=== PATIENT | female | born 1950 | race Caucasian/White ===

== ENCOUNTER 2021-02-06 07:14 | Outpatient (CLI) | payer MEDICARE, SELFPAY ==
--- NOTE | ~2021-02-06 | MR_ITS ---
EXAMINATION: MR cervical spine wo con DATE: 02/06/2021 08:39 INDICATION: Chronic neck pain. TECHNIQUE: Magnetic resonance imaging (MRI) of the cervical spine was performed without intravenous c ontrast. Sequences included sagittal T2-weighted FSE, sagittal T2-weighted FS FSE, sagittal T1-weight ed FSE, axial MERGE, and axial T2-weighted FSE. COMPARISON: None FINDINGS: There is 14 degrees levoscoliosis of upper thoracic spine. Vertebral body heights are brenda l. There is mildly decreased disc height at C5-C6. The spinal cord signal intensity is normal. The fo llowing disc levels are specifically discussed: C2-C3: The disc does not extend beyond the endplate margin. There is no uncovertebral joint osteoarth ritis. There is severe left facet joint osteoarthritis. There is no neural foraminal stenosis. There is no central canal stenosis. C3-C4: The disc does not extend beyond the endplate margin. There is mild left uncovertebral joint os teoarthritis. There is mild right and severe left facet joint osteoarthritis. There is mild left neur al foraminal stenosis. There is no central canal stenosis. C4-C5: There is a left foraminal protrusion. There is mild left uncovertebral joint osteoarthritis. T here is moderate right and severe left facet joint osteoarthritis. There is mild left neural foramina l stenosis. There is no central canal stenosis. C5-C6: The disc is bulging. There is moderate right and severe left uncovertebral joint osteoarthriti s. There is mild right and severe left facet joint osteoarthritis. There is mild left neural foramina l stenosis. There is mild central canal stenosis. C6-C7: There is a central protrusion. There is no uncovertebral joint osteoarthritis. There is severe bilateral facet joint osteoarthritis. There is mild bilateral neural foraminal stenosis. There is mi ld central canal stenosis. C7-T1: The disc does not extend beyond the endplate margin. There is no uncovertebral joint osteoarth ritis. There is severe right and moderate left facet joint osteoarthritis. There is mild bilateral ne ural foraminal stenosis. There is no central canal stenosis. IMPRESSION: 1. Mild cervical spondylosis. 2. Upper thoracic levoscoliosis. Reviewed, dictated and finalized at location A.
--- NOTE | ~2021-02-06 | CT_ITS ---
EXAMINATION: CT brain wo con EXAM DATE: 02/06/2021 08:52 INDICATION: Ataxia, lightheadedness and dizziness. Some visual disturbance. Tunnel vision. TECHNIQUE: Spiral CT of the head was performed without contrast. Axial, coronal and sagittal images were reviewed. The dose-length product (DLP) for this examination was 605.33 mGy-cm. The exposure w as tailored according to patient size, and iterative reconstruction (ASIR) was used as additional dos e reduction technique. There is no prior study for comparison. FINDINGS: There is no acute intraparenchymal hemorrhage. No evidence of intraparenchymal brain mass lesion. No evidence of acute infarction. Please note that initial head CT has limited sensitivity f or small or acute infarctions. There is mild periventricular and subcortical hypodensity, nonspecific but probably related to small vessel ischemic disease. There is mild prominence of the sulci and v entricles related to cerebral atrophy. There is intracranial carotid arteriosclerosis. There are n o extra-axial collections. There is no mass effect or midline shift. Patient has had bilateral ocul ar lens surgery. Soft tissue is unremarkable. The visualized sinuses and mastoid air cells are well aerated. IMPRESSION: 1. No acute intracranial findings. 2. Mild chronic age related findings. Reviewed, dictated and finalized at location A.
== END 2021-02-06 07:15 | disposition home or self-care (01) ==
LOC: ANHIMG 07:36
PROVIDERS: PCP Internal Medicine; Visit Provider Internal Medicine
DX: R27.0 Ataxia, unspecified (principal); M47.892 Other spondylosis, cervical region
CPT/HCPCS: 70450; 72141

== ENCOUNTER 2021-02-14 07:17 | Outpatient (CLI) | payer MEDICARE, SELFPAY ==
--- NOTE | 2021-02-14 | EST_ITS ---
Patient Info Name: Renetta Garcia Age: 70 years : 1950 Gender: Female Ht: 64 in Wt: 265 lbs BSA: 2.40 m2 Heart Rhythm: Sinus Rhythm Exam Date: 02/14/2021 11:03 AM Exam Location: [facility] Stress Patient Status: Outpatient Admit Date: 02/14/2021 Staff Ordering Physician: Kemal, Devin Isaac MD Attending Provider: Kemal, Devin Isaac MD Exercise Technologist: Jacqueline Glez RDCS Exercise Physician: Thien Dunn MD Exam Type: CA stress bree w NM Study Info Indications R06.09 - Other forms of dyspnea A regadenoson stress test was performed. Summary 1. Normal ECG response to Lexiscan. 2. Occasional stress-induced PVCs. 3. Brief stress-induced chest discomfort resolved spontaneously. 4. Please correlate with nuclear medicine images, reported separately. Protocol: Lexiscan Stress ECG Details Stage: REST Duration (min): 4 min : 23 sec HR (bpm): 62 SBP (mmHg): 144 DBP (mmHg): 79 Stage: REST Duration (min): 7 min : 51 sec HR (bpm): 63 SBP (mmHg): 144 DBP (mmHg): 79 Stage: STAGE 1 Duration (min): 1 min : 0 sec HR (bpm): 83 SBP (mmHg): 144 DBP (mmHg): 79 Stage: RECOVERY Duration (min): 1 min : 0 sec HR (bpm): 84 SBP (mmHg): 165 DBP (mmHg): 60 Stage: RECOVERY Duration (min): 2 min : 0 sec HR (bpm): 81 SBP (mmHg): 163 DBP (mmHg): 60 Stage: RECOVERY Duration (min): 3 min : 0 sec HR (bpm): 78 SBP (mmHg): 158 DBP (mmHg): 65 Stage: RECOVERY Duration (min): 4 min : 0 sec HR (bpm): 78 SBP (mmHg): 158 DBP (mmHg): 65 Stage: RECOVERY Duration (min): 4 min : 56 sec HR (bpm): 75 SBP (mmHg): 160 DBP (mmHg): 68 Rest HR: 63 bpm Peak HR: 87 bpm Rest Sys BP: 144 mmHg Peak Sys BP: 165 mmHg Max Pred HR: 149 bpm % Max Pred HR: 58 % Target HR: 127 bpm Max RPP: 14,355 bpm*mmHg Termination Reason: Completed protocol Cardiac Symptoms: Chest discomfort, Dyspnea Total Time: 1 min : 0 sec Rest Dillon BP: 79 mmHg Peak Dillon BP: 60 mmHg Total Dose: 0.4 mg Resting ECG Normal sinus rhythm - normal ECG. Stress ECG Normal ECG response to Lexiscan. Arrhythmias Occasional stress-induced PVCs. Report Signatures
--- NOTE | 2021-02-14 | ECHO_ITS ---
Patient Info Name: Renetta Garcia Age: 70 years : 1950 Gender: Female Ht: 64 in Wt: 265 lbs BSA: 2.40 m2 HR: 73 bpm BP: 148 / 86 mmHg Technical Quality: Fair Exam Date: 02/14/2021 8:15 AM Exam Location: [facility] Pulmonary Patient Status: Outpatient Admit Date: 02/14/2021 Staff Ordering Physician: Maulik*Devin MD Stone Sandblaster: GEORGINA GOLDSTEIN Attending Provider: Devin Gurrola MD Referring Physician: Kemal WETZEL; Exam Type: CA echo doppler color flow Study Info Indications R06.00 - Dyspnea, unspecified Complete two-dimensional, color flow and Doppler transthoracic echocardiogram is performed. Summary 1. Complete two-dimensional, color flow and Doppler transthoracic echocardiogram is performed. 2. Left ventricular systolic function is normal, estimated at 65-70%. 3. There is moderately increased left ventricular wall thickness. 4. The left ventricular diastolic function is grade I diastolic dysfunction. 5. Right ventricular chamber dimension is moderately enlarged. 6. Right ventricular systolic function is normal. 7. There is mild LV intracavitary obstruction with peak gradient 16 mmHg. Left Ventricle Left ventricular chamber dimension is normal. Left ventricular systolic function is normal, estimated at 65-70%. There is moderately increased left ventricular wall thickness. Left ventricular septal wall motion is normal. The left ventricular diastolic function is grade I diastolic dysfunction. There is mild LV intracavitary obstruction with peak gradient 16 mmHg. Right Ventricle Right ventricular chamber dimension is moderately enlarged. Right ventricular systolic function is normal. Left Atria Left atrial chamber dimension is mildly enlarged. Right Atria Right atrial chamber dimension is normal. Atrial Septum Intact interatrial septum visualized by color flow imaging. Aortic Valve The aortic valve is trileaflet. There is no aortic valve sclerosis. There is no aortic valve stenosis. There is no aortic valve regurgitation. Pulmonic Valve The pulmonic valve is normal. There is no pulmonic valve stenosis. There is no pulmonic regurgitation. Mitral Valve The mitral valve has normal leaflets. There is no mitral valve stenosis. There is no mitral valve regurgitation. There is mild mitral valve calcification. Tricuspid Valve The tricuspid valve leaflets are normal. There is no significant tricuspid valve stenosis. There is no tricuspid valve regurgitation. Pericardium/Pleural The pericardium appears normal. There is no pericardial effusion. Inferior Vena Cava Normal inferior vena cava with <50% collapse upon inspiration consistent with elevated right atrial pressure, 10 mmHg. Aorta The aortic root size at the sinus of Valsalva is normal. The prox ascending aorta size is normal. Left Ventricular Outflow Tract Name Value Normal LVOT 2D LVOT Diameter 1.9 cm LVOT Doppler LVOT Peak Gradient 4 mmHg LVOT Mean Gradient 2 mmHg LVOT VTI 21 cm
--- NOTE | ~2021-02-14 | NM_ITS ---
EXAMINATION: NM bree stress w perfusion DATE: 02/14/2021 13:58 INDICATION: Dyspnea on exertion TECHNIQUE: Rest images were obtained following intravenous administration of 9.1 mCi Tc99m tetrofosmi n (Myoview). The patient was infused intravenously with Lexiscan (Regadenoson). Then, 28.8 mCi Tc99m tetrofosmin (Myoview) was administered intravenously, and stress images were obtained. Data was recon structed into short axis and horizontal and vertical long axis SPECT images. Gated SPECT images were also obtained. COMPARISON: None. FINDINGS: There is no definite reversible or fixed perfusion abnormality to suggest ischemia or infar ction. There is normal left ventricular chamber size, wall motion and ejection fraction. Left ventr icular ejection fraction measures >70%. IMPRESSION: 1. Normal myocardial perfusion at rest and during stress. 2. Left ventricular ejection fraction measuring >70%. Reviewed, dictated and finalized at location A.
== END 2021-02-14 07:18 | disposition home or self-care (01) ==
LOC: ANHCARD 07:19
PROVIDERS: PCP Internal Medicine; Visit Provider Internal Medicine
DX: R06.09 Other forms of dyspnea (principal); I51.7 Cardiomegaly
CPT/HCPCS: 78452; 93017; 93306; A9502; J2785

== ENCOUNTER 2021-07-29 08:12 | Outpatient (CLI) | payer MEDICARE, SELFPAY ==
--- NOTE | ~2021-07-29 | CT_ITS ---
EXAMINATION: CT soft tissue neck w con DATE: 07/29/2021 08:46 INDICATION: Localized swelling, mass and lump, neck. Dysphagia. Left neck swelling. TECHNIQUE: Computed tomography (CT) of the neck was performed with 75 mL Omnipaque-350 intravenous co ntrast. Automated exposure control and iterative reconstruction technique were employed. The dose-paras gth product was 517.10 mGy-cm. COMPARISON: None FINDINGS: There are likely changes of ocular lens replacement surgeries. The thyroid is normal. There are no pathologically enlarged lymph nodes. The major salivary glands are normal. There is mild muco peter thickening in the paranasal sinuses. There is mild cervical spondylosis. IMPRESSION: 1. No abnormal mass or lymphadenopathy. Reviewed, dictated and finalized at location A. ING CAN WORKER
[2021-07-29 08:36] LABS: Estimated Glomerular Filt Rate > 60
== END 2021-07-29 08:13 | disposition home or self-care (01) ==
LOC: ANHIMG 08:15
PROVIDERS: PCP Internal Medicine; Visit Provider Otolaryngology
DX: R22.1 Localized swelling, mass and lump, neck (principal)
CPT/HCPCS: 70491; Q9967

== ENCOUNTER 2023-05-05 12:40 | Outpatient (CLI) | payer MEDICARE, SELFPAY ==
--- NOTE | 2023-05-09 16:23 | WPDPFTINT ---
PFT Procedure Performed PFT Procedure Performed Plethysmography (Lung Vol) Diffusing Cap (DLCO) Flow Vol Loop Spirometry w/o Bronchodil PFT Interpretation DOS: 05/05/2023 REQUESTING: Dr. Devin Perez REASON FOR TESTING: shortness of breath PULMONARY FUNCTION TESTS Results are reliable and reproducible. Spirometry: FEV1 is 1.58 L, 72% predicted, mildly decreased. FVC is 2.37 L, 83% predicted, normal. The FEV1/FVC ratio is 67%, within the normal range. No bronchodilator was administered. Lung volumes: The total lung capacity is 5.22 L, 101% predicted, normal. Residual volume is 2.85 L, 124% predicted, within the normal range. RV/TLC is 54%, upper limit of normal. Airway resistance is 4.81 cmH20/L/sec, 240% predicted, elevated. Diffusion: DLCO is 20.2, 98% predicted, normal. DLCO/VA is 4.99, 119%, normal. Flow volume loop: The expiratory limb has a mild coving of the expiratory limb. There were 3 expiratory limbs, and I evaluated the best of the 3. IMPRESSION: This pulmonary function study without bronchodilator shows a mild decrease in FEV1 without airflow obstruction, normal lung volumes and normal diffusion. There are no prior studies for comparison. Jenise Knowles MD
== END 2023-05-05 12:41 | disposition home or self-care (01) ==
LOC: ANHPFT 12:41
PROVIDERS: PCP Internal Medicine; Visit Provider Internal Medicine
DX: R06.00 Dyspnea, unspecified (principal); R94.2 Abnormal results of pulmonary function studies
CPT/HCPCS: 94375; 94726; 94729

== ENCOUNTER 2025-03-31 13:31 | Outpatient (CLI) | payer MEDICARE, SELFPAY ==
--- OUTSIDE RECORDS SUMMARY | 2014-10-05 05:30 | XMS_ITS | Continuity of Care Document ---
Author Organization [facility] Address [address] [facility] [address] [place] [id number] Phone Care Team Providers Care Surgical Oncologist Name Role Phone Denny Guerrero MD, MD Unavailable Unavailab le Allergies, Adverse Reactions, Alerts Substance Reaction Status Criticality azithromycin Active No Information POTASSIUM CLAVULANATE Active No Inf ormation AMOXICILLIN TRIHYDRATE Active No In formation Medications Medication Instructions Dosage Effective Dates (start - stop) Status Comments Emma-D 12 Hour 60 mg-120 mg tablet,extended release - Active Celebrex 200 mg capsule - Active lisinopril 10 mg tablet - Active Nexium 40 mg capsule,delayed release - Active Durezol 0.05 % eye drops instill 1 drop by ophthalmic route 2 times every day into operated eye for 2 weeks - No Longer Active Procedures Procedure Date Office/outpatient Visit, Est Post-op Follow-up Visit No Charge Refraction Post-op Follow-up Visit Remove Cataract, Insert Lens Post-op Follow-up Visit Post-op Follow-up Visit Remove Cataract, Insert Lens Office/outpatient Visit, New No Charge Refraction IOLMaster IOLMaster Advance Directives Directive Yes / No Effective Date File Name No Information Encounters Encounter Description Practice Location Reason(s) For Visit Diagnoses Date Provider Providers Copied on Encounter Office/outpat ient Visit, Est [facility], [address], [place], [place], [id number], [place] tel:[phone] SEC [place] Professional 6 MO FU (chief complaint) Artificial lens present Apr-2 -201 5 Cesar Baldwin. [address], [address], [place], [place], [facility], [place]. tel:[phone] Referring Provider: Denny Mercedes, [address], [place], [place], [facility]. tel:[phone] [facility], [address], [place], [place], [id number], [place] tel:[phone] SEC [place] Professional F/u exam, postop (chief complaint) Post op follow up Oct-2 - 4 Farida Mix. [address] [facility], [facility] [[email or web address] [place], [id number], [place]. tel:[phone] Referring Provider: Barak Browne OD, [facility] [address] [place], [address]. tel:[phone] [facility], [address], [place], [place], [id number], [place] tel:[phone] SEC [place] Professional F/u exam, postop (chief complaint) Post op follow up Oct-0 - 4 Cesar Bladwin. [address], [address], [place], [place], [facility], [place]. tel:[phone] Referring Provider: Barak Browne OD, [facility] [address] [place], [address]. tel:[phone] [facility], [address], [place], [place], [id number], [place] tel:[phone] [facility] No Information Oct-0 6- 4 Cesar Baldwin. [address], [address], [place], [place], [facility], [place]. tel:[phone] Referring Provider: Barak Browne OD, [facility] [address] [place], [address]. tel:[phone] [facility], [address], [place], [place], [id number], [place] tel:[phone] SEC [facility] Professional F/u exam, postop (chief complaint) Post op follow up Oct-0 1-201 4 Wankum Dominguez. [address] [facility], [place], [place], [id number], [place]. tel:[phone] Referring Provider: Denny Guerrero MD P, [address], [place], [address]. tel:[phone] [facility], [address], [place], [place], [id number], [place] tel:[phone] [facility] Professional F/u exam, postop (chief complaint) Post op follow up Sep-2 3-201 4 Wankum Dominguez. [address] [facility], [address], [place], [place], [address], [place]. tel:[phone] Referring Provider: Barak Browne OD, [facility] [address] [place], [address]. tel:[phone] [facility], [address], [place], [place], [id number], [place] tel:[phone] [facility] No Information Sep-2 2-201 4 Cesar Baldwin. [address], [place], [address], [place]. tel:[phone] Referring Provider: Barak Browne OD, [facility] [address] [place], [address]. tel:[phone] [facility], [address], [place], [place], [id number], [place] tel:[phone] SEC Jocelyn Matos No Information 4 Kadeem Beltran. [address], [address], [place], [place], [id number], [place]. tel:[phone] Office/outpat ient Visit, [facility], [address], [place], [place], [id number], [place] tel:[phone] SEC Khadar CARRI[place] Professional Blurry vision (chief complaint) Cortical senile cataract Feb- 4 Cesar Baldwin. [address], [address], [place], [address], [place]. tel:[phone] Referring Provider: Barak Browne OD, [facility] [address] [facility], [place], [address]. tel:[phone] [facility], [address], [place], [place], [id number], [place] tel:[phone] SEC Khaadr CARRILLO Professional No Information 4 Farida Mix. [address] [facility], [address], [place], [place], [id number], [place]. tel:[phone] Family History Family Member Type Diagnosis Age At Onset No Information Payers Payer name Insurance type Covered democrat ID Authoriza tivern(s) [place] FEP BL [id number] Social History Type Description Quantity Date Captured Comments Alcohol Use Details Unknown Caffeine Use Details Unknown Tobacco Use Status No Information Smoking Status No Information Sex Female Chief Complaint And Reason For Visit From encounter dated '10/05/2014 10:30'. 6 MO FU (chief complaint). Description: The 63 year old female presents for 6 MO FU. Patient reports she is only here because our office called to make her a 6 month appointment. Patient reports OU vision is good. Patient has not seen Dr. Browne, but got new glasses in his office. Patient states the only thing that bothers her is the floater OS that has been present since her Cataract Surgery. Patient Hx IOL OU. Reason For Referral Reason For Referral No Information History Of Present Illness Encounter Date Complaint History Of Prese nt Illness 6 MO FU The 63 year old female presents for 6 MO FU. Patient reports she is only here because our office called to make her a 6 month appointment. Patient reports OU vision is good. Patient has not seen Dr. Browne, but got new glasses in his office. Patient states the only thing that bothers her is the floater OS that has been present since her Cataract Surgery. Patient Hx IOL OU. F/u exam, postop The 63 year old female presents for a 2 week post op Phaco c IOL OD (2nd eye). Pt states she has a shadow nasally OD. Pt states she only notices shadow when looking straight ahead. Pt has no c/o of pain or discomfort. Pt using Pred. F/u exam, postop Patient present s for a 1 day post op CE OD. Patient to begin Poly and Pred qid OD and has refills from OS. Patient denies any pain or discomfort. F/u exam, postop Patient present s for a 1 week post op CE OS. Patient states OS is doing good. Patient is using Pred qid OS and d/c Poly yesterday. Patient wishes to proceed with CE OD because of blurry vision. Patient states both eyes will be for close-up. F/u exam, postop The 63 year old female presents for a 1 day post op Phaco c IOL OS. Pt states that OS was a little uncomfortable last night. Pt states OS feels fine today. Pt feels eye is a little bloodshot today. Pt has post op gtts. Pt given post op restrictions and gtts schedule. Pt would like to know if she can move OD Sx up to next week, due to vacation. Pt using Poly and Durezol. Blurry vision The 63 year old female presents for a Cataract Evaluation. Pt states that her vision is very cloudy, and she is having problems with glare. Pt states that she is having difficulty reading road signs and reading upclose. Pt uses Refresh PRN, visine tears PRN. Functional Status Date Functional Assessmen t No Information Instructions Date Instruction Additional Infor florian - Return in 18 months for comple te exam Related to Artificial lens present - Good IOL placement , good post op results very happy with outcome. Return to clinic in 18 months for complete exam or patient may return to Dr Browne for future care. Related to Artificial lens present Artificial lens pres ent - Educational material given Related to Artificial lens present - to Dr. Browne for follow up Related to Post op follow up - Discussed post op course with pt. Continue to taper same medications. Spec RX vs OTC rx discussed. Copy of glasses rx given to patient today. Return to Dr. Browne for follow up care. Related to Post op follow up - RTC as scheduled Related to Se e list of assessments above - One day s/p phaco with IOL OD. IOL in good position. Medication instillation and post op instructions reviewed. Pt understands shield use. RTC as scheduled or sooner if problems. Educational materials provided:about today's exam. Related to See list of assessments above - keep appt for surg od Related to Post op follow up - explained need for bif or to take DV glasses off to read following surg and she understandsfinish drops Related to Post op follow up - RTC in 1 week for post op to I OL OS Related to See list of assessments above - One day s/p phaco with IOL OS (near). IOL in good position. Medication instillation and post op instructions reviewed. Pt understands shield use. RTC in 1 week for post op to IOL OS. Pt would like the surgery for CE OD moved up 1 week if possible. Educational materials provided:about today's exam. Related to See list of assessments above - RTC as scheduled Related to Se e list of assessments above - Cataracts diagnosi s discussed with pt in detail. Discussed all risks, benefits, procedure and recovery regarding cataract sx. Patient desires to have surgery, recommend phacoemulsification with intraocular lens. Lifestyle lens options discussed. RTC as scheduled. Schedule CE OS first - ZCBOO -1.50-2.00. IOL Master Completed: Yes Educational materials provided:about today's exam. Related to See list of assessments above Assessments Type Assessment Date assessment Artificial lens present 015 Patient Care Teams Name Effective Dates (start - stop) Status Members No Information
--- NOTE | 2025-03-31 | ECHO_ITS ---
Patient Info Name: Renetta Garcia Age: 74 years : 1950 Gender: Female Ht: 65 in Wt: 236 lbs BSA: 2.27 m2 HR: 75 bpm BP: 154 / 99 mmHg Heart Rhythm: Sinus Rhythm Technical Quality: Fair Exam Date: 03/31/2025 1:55 PM Patient Status: O Admit Date: 03/31/2025 Exam Type: CA echo doppler color flow Activity Leader: Angela Tolliver Attending Provider: Devin Sommer Summary 1. Left ventricular chamber dimension is normal. 2. Left ventricular systolic function is normal, estimated at 65-70. 3. There is mild concentric increased left ventricular wall thickness. 4. The left ventricular diastolic function is grade I diastolic dysfunction. 5. E/e' 11 is mildly elevated. 6. Left atrial chamber dimension is mildly enlarged. 7. The mitral valve has moderately calcified leaflets and a moderately calcified annulus. 8. There is trace tricuspid valve regurgitation. 9. No pulmonary hypertension, estimated pulmonary arterial systolic pressure is 38 mmHg. 10. There is trace pulmonic regurgitation. Left Ventricle E/e' 11 is mildly elevated. Left ventricular chamber dimension is normal. Left ventricular systolic function is normal, estimated at 65-70. There is mild concentric increased left ventricular wall thickness. The left ventricular diastolic function is grade I diastolic dysfunction. Right Ventricle Right ventricular chamber dimension is normal. Right ventricular systolic function is normal and with normal TAPSE 2.4 cm. Left Atria Left atrial chamber dimension is mildly enlarged. Right Atria Right atrial chamber dimension is normal. Aortic Valve The aortic valve is trileaflet. There is no aortic valve stenosis. There is no aortic valve regurgitation. Pulmonic Valve There is trace pulmonic regurgitation. Mitral Valve The mitral valve has moderately calcified leaflets and a moderately calcified annulus. There is no mitral valve stenosis. There is no mitral valve regurgitation. Tricuspid Valve There is trace tricuspid valve regurgitation. No pulmonary hypertension, estimated pulmonary arterial systolic pressure is 38 mmHg. Pericardium/Pleural There is no pericardial effusion. Inferior Vena Cava Normal inferior vena cava with >50% collapse upon inspiration consistent with normal right atrial pressure, 5 mmHg. Aorta The aortic root size at the sinus of Valsalva is normal. Left Ventricular Outflow Tract Name Value Normal LVOT 2D LVOT Diameter 2.0 cm LVOT Doppler LVOT Peak Velocity 137 cm/s LVOT Peak Gradient 7 mmHg LVOT Mean Gradient 4 mmHg LVOT VTI 26 cm LVOT VTI/AV VTI Ratio 0.9 LVOT Stroke Volume 85 ml LVOT CO 6.2 l/min LVOT CI 2.7 l/min/m2 Pulmonic Valve Name Value Normal RVOT Doppler RVOT Peak Velocity 109 cm/s RVOT Peak Gradient 5 mmHg PV Doppler PV Peak Velocity 125 cm/s PV Peak Gradient 6 mmHg Mitral Valve Name Value Normal MV Diastolic Function MV E Peak Velocity 78 cm/s MV A Peak Velocity 107 cm/s MV E/A 0.7 MV Decel Time (PW) 256 ms MV Annular TDI MV E/e' (Septal) 13.6 MV E/e' (Lateral) 10.6 MV E/e' (Average) 12.1 Tricuspid Valve Name Value Normal TV Regurgitation Doppler TR Peak Velocity 289 cm/s TR Peak Gradient 33 mmHg Estimated PAP/RSVP RA Pressure 5 mmHg <=5 PA Systolic Pressure 38 mmHg <36 RV Systolic Pressure 38 mmHg <36 TV Annular TDI TV Lateral Pearl s' Velocity 13.5 cm/s >=9.5 Aorta Name Value Normal Ascending Aorta Ao Root Diameter (MM) 3.3 cm Ao Root Diam Index (MM) 1.5 cm/m2 Aortic Valve Name Value Normal AV Doppler AV Peak Velocity 158 cm/s AV Peak Gradient 10 mmHg AV Mean Gradient 5 mmHg AV VTI 30 cm AV Area (Cont Eq VTI) 2.9 cm2 >=3.0 AV Area (Cont Eq Noman) 2.8 cm2 AV DI (Noman) 0.87 AV Regurgitation 2D LVOT Area 3.3 cm2 Ventricles Name Value Normal LV Dimensions 2D/MM IVS Diastolic Thickness (2D) 1.1 cm 0.6-1.0 LVID Diastole (2D) 4.3 cm 3.8-5.2 LVIW Diastolic Thickness (2D) 1.0 cm 0.6-0.9 LVID Systole (2D) 2.5 cm 2.2-3.5 LVOT Diameter 2.0 cm LV Mass (2D Cubed) 149.33 g 67.00-162.00 LV Mass Index (2D Cubed) 66 g/m2 43-95 Relative Wall Thickness (2D) 0.47 <=0.42 LV Fractional Shortening/Ejection Fraction 2D/MM LV Fractional Shortening (2D) 42 % 27-45 LV EF (2D Teichpablo) 74 % LV Diastolic Volume (4C MOD) 66 ml LV EF (4C MOD) 72 % LV Diastolic Volume (2C MOD) 61 ml LV EF (2C MOD) 76 % LV Diastolic Volume (BP MOD) 64 ml 46-106 LV Diastolic Volume Index (BP MOD) 28 ml/m2 29-61 LV Systolic Volume (BP MOD) 16 ml 14-42 LV Systolic Volume Index (BP MOD) 7 ml/m2 8-24 LV EF (BP MOD) 75 % 54-74 LV Diastolic Length (4C) 7.8 cm LV Systolic Length (4C) 6.2 cm LV Stroke Volume (4C MOD) 48 ml Atria Name Value Normal LA Dimensions LA Dimension (MM) 4.0 cm 2.7-3.8 LA Volume (4C A-L) 71 ml LA Volume (BP A-L) 68 ml RA Dimensions RA Area (4C) 19.2 cm2 <=18.0 Report Signatures
--- OUTSIDE RECORDS SUMMARY | 2025-03-31 13:38 | XMS_ITS | Encounter Summary ---
Author Organization [facility] Address [address] [place] [address] Care Team Providers Care Hazardous Substances Engineer Name Role Phone Unavailable Primary Care Provider Unavailabl e Encounter Details Date Type Department Care Team (Late st Contact Info) Description 07/09/2023 Lab Requisition 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 DermPath Lab Received: 07/09/2023 11:00 AM Pathologist: Mamie Kerr MD Specimen: Skin, left foot 4 5:18 PM TERRITORY ACCOUNT MANAGER DERMATOPATHOLOGY LABORATORY Final Diagnosis Specimen A. SKIN, left foot: LICHENOID (INTERFACE) DERMATITIS (L30.8) (see microscopic description and comment) 4 5:18 PM TERRITORY ACCOUNT MANAGER DERMATOPATHOLOGY LABORATORY at 1718 TERRITORY ACCOUNT MANAGER Clinical History R/O psoriasis vs tinea vs eczema 4 5:18 PM [facility] DERMATOPATHOLOGY LABORATORY Gross Description Specimen A: Received is one formalin filled container labeled with the patient's name and designated left foot. The specimen consists of a shave biopsy measuring 7x7x1 mm. Jar 0. 4 5:18 PM [facility] DERMATOPATHOLOGY LABORATORY Microscopic Description Specimen A. SKIN, left foot: There are scattered dyskeratotic keratinocytes and vacuolar alteration along the basal cell layer. In addition, an underlying band-like infiltrate composed mostly of lymphocytes focally obscures the dermal-epidermal junction. Grocott's methenamine silver (GMS) stain is negative for fungal elements in the sections examined. COMMENT: The histologic findings can be seen in lichen planus or a lichenoid contact dermatitis, despite the lack of eosinophils. Clinicopathologic correlation is recommended. 4 5:18 PM [facility] DERMATOPATHOLOGY LABORATORY Disclaimer An external and internal positive and negative controls are appropriate for the histochemical, immunohistochemical and immunofluorescence stain(s) in this case (if any), except where stated explicitly. The performance characteristics of the stain(s) cited in this report were developed and its performance characteristic determined by the Dermatopathology Laboratory at [facility], directed by Dr. Сергей Kerr. These tests need not be, and therefore are not, approved by the [place] Food and Drug Administration. The tests are used for clinical purposes. Billing Codes Specimen Charges Stain Charges 00353 1 85245 1 4 5:18 PM [facility] DERMATOPATHOLOGY LABORATORY Embedded Images 4 5:18 PM [facility] DERMATOPATHOLOGY LABORATORY Pathology/Cytolo gy TISSUE SPECIMEN FROM SKIN / Unknown 07/08/2023 3:33 AM TERRITORY ACCOUNT MANAGER 07/09/2023 11:00 AM TERRITORY ACCOUNT MANAGER Faisal Camilo MD LAB - PATHOLOGY/CYTOLOGY ORDERAB LES Final Result DERMATOPATHOLOGY LABORATORY [facility] - Department of Dermatology [address] [phone] documented in this encounter Visit Diagnoses Not on filedocumented in this encounter
--- OUTSIDE RECORDS SUMMARY | 2025-03-31 13:38 | XMS_ITS | Clinical Summary ---
Author Organization [facility] Address [address] [place] [address] Care Team Providers Care Delivery Architect Name Role Phone Unavailable Primary Care Provider Unavailabl e Source Comments [facility] [employer],non-owned Affiliates and Associated Physician Practices is amultiple site organization consisting of ambulatory clinics and hospital sitesin [place], [place], [place] and [place]. This disclosure is being madepursuant to the Care Everywhere program and may not contain all information available regarding this patient. 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 Gender Identity Not on file Sexual Orientation Not on file Plan of Treatment Health Maintenance Due Date Last Done Comments BONE DENSITY TESTING 1950 COLOGUARD (AGES 45-75) - COL ON CA SCREENING 1950 COLON MONITORING 1950 COLONOSCOPY - COLON CA SCREENING 1950 CT COLONOGRAPHY - COLON CA SCREENING 1950 Colorectal Cancer Screening 1950 FIT - COLON CA SCREENING 1950 FLEX SIG - COLON CA SCREENING 1950 LIPID TESTING 1950 MAMMOGRAM 1950 MEDICARE AWV 12 MONTHS 1950 HEPATITIS C SCREENING 11/27/1967 DTAP/TDAP/TD VACCINES (1 - Tdap) 1968 PNEUMOCOCCAL VACCINE 50+ (1 of 1 - PCV) 12/02/1999 ZOSTER VACCINE (1 of 2) 12/02/1999 DEPRESSION SCREENING 06/15/2024 Respiratory Syncytial Virus (RSV) Vaccine Pt: or over 60 yrs (1 - 1-dose 75+ series) 2024 COVID-19 VACCINE ( - 2023-2 5 season) 2025 INFLUENZA VACCINE (#1) 2025 HEPATITIS B VACCINE Aged Out No longe r eligible based on patient's age to complete this topic HIB VACCINE Aged Out No longer eligi ble based on patient's age to complete this topic HPV VACCINE Aged Out No longer eligi ble based on patient's age to complete this topic MENINGOCOCCAL (Group B) VACC INE SHARED DECISION-MAKING Aged Out No longer eligibl e based on patient's age to complete this topic MENINGOCOCCAL GROUPS A/C/Y/W VACCINE Aged Out No longer eligible b ased on patient's age to complete [place] [address] MEDICARE COMMERCIAL GENERIC
--- NOTE | 2025-04-07 12:05 | WPDHOLTEREM ---
Holter/Event Monitor Holter/Event Monitor Date of procedure: 03/31/25 Holter/Event Procedure: 3-7 Day Holter Monitor Indications: Palpitations Conclusion: 1. 3 days holter monitor on 03/31/25. 2. Predominant rhythm is sinus rhythm. HR range 61-116 bpm; average HR 79 bpm. 3. There are rare premature supraventricular complexes, rare supraventricular couplets. There is 1 episode of supraventricular tachycardia at 109 bpm lasting 4 beats. 4. There are occasional premature ventricular complexes, rare ventricular couplets, and longest ventricular bigeminy was 3.9 seconds. No ventricular tachycardia. 5. No significant pauses greater than 3 seconds. 6. Patient reports 1 episode of symptom of lightheadedness which demonstrates sinus tachycardia at 104 bpm with PVC.
== END 2025-03-31 13:32 | disposition home or self-care (01) ==
LOC: ANHCARD 13:35
PROVIDERS: PCP Internal Medicine; Visit Provider Internal Medicine
DX: R93.1 Abnormal findings on diagnostic imaging of heart and coronary circulation (principal); I49.1 Atrial premature depolarization; R00.0 Tachycardia, unspecified; R06.09 Other forms of dyspnea; R00.2 Palpitations
CPT/HCPCS: 93242; 93306